=== PATIENT | male | born 1945 | race Asian ===

== ENCOUNTER 2019-03-21 17:50 | Emergency (ER) | payer OTHER ==
[2019-03-21 18:06] VITALS: BP 127/61; PULSE 98; TEMP 98.7; BMI 22.9
--- NOTE | 2019-03-21 20:48 | PDOC ---
History of Present Illness - General Chief Complaint: Dysphagia Stated Complaint: PAIN Time Seen by Provider: 03/21/19 20:08 History Source: Patient Exam Limitations: No Limitations Past History - Past Medical History Allergies/Adverse Reactions: Allergies Allergy/AdvReac Type Severity Reaction Status Date / Time Penicillins Allergy Verified 03/21/19 18:03 Home Medications: Ambulatory Orders Cyclobenzaprine HCl [Flexeril] 10 mg PO HS PRN #10 tablet 04/29/12 Esomeprazole Mag Trihydrate [Nexium] 40 mg PO DAILY 04/29/12 Oxycodone HCl/Acetaminophen [Percocet 5-325 mg Tablet] 1 - 2 tab PO Q6H #20 tablet 04/29/12 Cancer: Yes (CANCER) COPD: No - Immunization History Immunization Up to Date: Yes - Psycho Social/Smoking Cessation Hx Smoking Status: No Smoking History: Never smoked Have you smoked in the past 12 months: No Number of Cigarettes Smoked Daily: 0 If you are a former smoker, when did you quit?: 1985 Cigars Per Day: 10 Information on smoking cessation initiated: No 'Breaking Loose' booklet given: 08/07/11 Hx Alcohol Use: No Drug/Substance Use Hx: No Substance Use Type: None Hx Substance Use Treatment: No *Physical Exam - Vital Signs Last Vital Signs Temp Pulse Resp BP Pulse Ox 98.7 F 98 H 16 127/61 95 03/21/19 18:03 03/21/19 18:03 03/21/19 18:03 03/21/19 18:03 03/21/19 18:03 - Physical Exam General Appearance: No: Apparent Distress Respiratory/Chest: positive: Lungs Clear, Normal Breath Sounds. negative: Respiratory Distress Cardiovascular: positive: Regular Rhythm, Regular Rate, S1, S2. negative: Murmur Gastrointestinal/Abdominal: positive: Normal Bowel Sounds, Soft. 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 Both episodes occurred when patient ate rice too quickly and did not drink enough water. The first episode occurred last week and the second episode occurred today. Patient says he is otherwise has no difficulty swallowing stuff and he just gets stuck in his esophagus if he eats too quickly. Patient states he only came to the emergency room as his was concerned and wanted to have him evaluated. Denies fever, shortness of breath, chest pain, abdominal pain, vomiting. Patient was observed and had him swallow juice and crackers Patient was able to swallow both without any difficulties Patient reassured 03/21/19 20:45 Discharge - Discharge Information Problems reviewed: Yes Clinical Impression/Diagnosis: Dysphagia Qualifiers: Dysphagia type: esophageal phase Qualified Code(s): R13.10 - Dysphagia, unspecified Condition: Stable Disposition: HOME - Admission No - Additional Discharge Information Prescription Drug Monitoring Program (I-STOP) results: I-STOP not reviewed - Follow up/Referral Referrals: Chandler Mosquera MD [Primary Care Provider] - 2 Days - Patient Discharge Instructions Patient Printed Discharge Instructions: DI for Esophageal Dysphagia Additional Instructions: Thank you for choosing [facility]. It was a pleasure taking care of you. Recommend eating food slowly. Return to the Emergency Department if your symptoms worsen or persist or have other concerning symptoms. - Post Discharge Activity
== END 2019-03-21 21:29 | disposition home or self-care (01) ==
LOC: JER 17:50
DX: R13.10 Dysphagia, unspecified (principal); R00.2 Palpitations; K21.9 Gastro-esophageal reflux disease without esophagitis; Z85.038 Personal history of other malignant neoplasm of large intestine; Z87.891 Personal history of nicotine dependence; Z88.0 Allergy status to penicillin
CPT/HCPCS: 99281-25